=== PATIENT | female | born 1955 | race Caucasian/White ===

== ENCOUNTER → 2023-08-23 14:27 | Outpatient (REF) | payer OTHER, MEDICARE, SELFPAY | LOC: WDC 14:27 | PROVIDERS: ATTENDING PHYSICIAN Family Medicine | DX: Z12.31 Encounter for screening mammogram for malignant neoplasm of breast (principal) | CPT/HCPCS: 77063; 77067 ==

== ENCOUNTER → 2023-09-03 09:41 | Outpatient (REF) | payer OTHER, SELFPAY | LOC: WDC 09:41 | PROVIDERS: ATTENDING PHYSICIAN Family Medicine | DX: R92.8 Other abnormal and inconclusive findings on diagnostic imaging of breast (principal) | CPT/HCPCS: 77065 ==

== ENCOUNTER → 2024-03-20 09:25 | Outpatient (REF) | payer OTHER, SELFPAY | LOC: RCS 09:25 | PROVIDERS: ATTENDING PHYSICIAN Family Medicine | DX: I47.29 Other ventricular tachycardia (principal) | CPT/HCPCS: 93225; 93226 ==

== ENCOUNTER → 2024-05-08 09:03 | Outpatient (REF) | payer OTHER, SELFPAY | LOC: RCS 09:03 | PROVIDERS: ATTENDING PHYSICIAN Internal Medicine Cardiovascular Disease; FAMILY PHYSICIAN Family Medicine | DX: R06.02 Shortness of breath (principal) | CPT/HCPCS: 93306 ==

== ENCOUNTER → 2024-09-02 14:52 | Outpatient (REF) | payer OTHER, SELFPAY | LOC: WDC 14:52 | PROVIDERS: ATTENDING PHYSICIAN Family Medicine | DX: M81.0 Age-related osteoporosis without current pathological fracture (principal); Z12.31 Encounter for screening mammogram for malignant neoplasm of breast | CPT/HCPCS: 77063; 77067; 77080 ==